=== PATIENT | female | born 1995 | race Caucasian/White ===

== ENCOUNTER 2024-08-10 02:44 | Emergency (ER) | payer BC, OTHER ==
[~2024-08-10] VITALS: Ht 162.6 cm; Wt 56.7 kg
[2024-08-10 02:45] VITALS: BP_SYST 109; PULSE 68; RESP 20; TEMP 97.2; O2SAT 99
[2024-08-10] MEDS: NACL 0.9% 1,000 ML IV ONE (03:22)
[2024-08-10 04:15] LABS: BASOPHILS % (AUTO) 0.4 % (0.0-2.0); EOSINOPHILS # (AUTO) 0.1 K/uL (0.0-0.4); EOSINOPHILS % (AUTO) 0.6 % (0.0-4.0); HEMATOCRIT 37.7 % (36-48); HEMOGLOBIN 12.4 g/dL (12.0-16.0); LYMPHOCYTES # (AUTO) 1.5 K/uL (1.0-5.5); LYMPHOCYTES % (AUTO) 15.6 % (20.5-51.5); MEAN CORPUSCULAR HEMOGLOBIN 28 pg (27-31); MEAN CORPUSCULAR HGB CONC 33 % (32-36); MEAN CORPUSCULAR VOLUME 84 fL (79.0-98.0); MONOCYTES # (AUTO) 0.5 K/uL (0.0-1.0); MONOCYTES % (AUTO) 5.2 % (1.7-9.3); NEUTROPHILS # (AUTO) 7.4 K/uL (1.8-7.7); NEUTROPHILS % (AUTO) 78.2 % (40.0-70.0); PLATELET COUNT (AUTO) 325 K/uL (130-430); RED CELL DISTRIBUTION WIDTH 14.9 % (9.0-15.0); WHITE BLOOD COUNT (AUTO) 9.4 K/uL (4.8-10.8)
[2024-08-10 04:42] LABS: ALBUMIN 4.3 g/dL (3.4-4.8); BILIRUBIN,DIRECT 0.1 mg/dL (0.0-0.3); CALCIUM 9.2 mg/dL (8.4-11.0); CREATININE 0.82 mg/dL (0.55-1.30); POTASSIUM 3.4 mmol/L (3.5-5.1); TOTAL BILIRUBIN 0.2 mg/dL (0.0-1.0); TOTAL PROTEIN, SERUM 8.2 g/dL (6.4-8.3)
[2024-08-10 04:44] LABS: SERUM HCG (QUALITATIVE) NEGATIVE (NEGATIVE)
[2024-08-10 05:11] LABS: BILIRUBIN,URINE NEGATIVE (NEGATIVE); BLOOD, URINE NEGATIVE (NEGATIVE); CLARITY/URINE CLEAR (CLEAR); COLOR,URINE YELLOW (YELLOW); GLUCOSE,URINE NEGATIVE (NEGATIVE); KETONES,URINE 1+ (NEGATIVE); LEUKOCYTE ESTERASE ,URINE NEGATIVE (NEGATIVE); NITRITE, URINE NEGATIVE (NEGATIVE); PH,URINE 7.5 (5.0-8.0); PROTEIN URINE NEGATIVE (NEGATIVE); UROBILINOGEN,URINE 0.2 (0.2-1.0)
[2024-08-10] MEDS: ONDANSETRON HCL 4 MG/2 ML VIAL IVP ONE (05:11)
[2024-08-10] MEDS: KETOROLAC TROMETHAMINE 15 MG VIAL IVP ONE (05:17)
[2024-08-10] MEDS: FAMOTIDINE PF 20 MG/2 ML VIAL IVP ONE (05:18)
[2024-08-10 06:15] VITALS: BP_SYST 100; PULSE 90; RESP 18; TEMP 97.2; O2SAT 98
== END 2024-08-10 06:15 | disposition home or self-care (01) ==
LOC: SED 02:44
DX: K29.20 Alcoholic gastritis without bleeding (principal); R10.12 Left upper quadrant pain; R11.2 Nausea with vomiting, unspecified
CPT/HCPCS: 99284; 96374; 96375; 96361; 80076; 80048; 81001; 84703; 83690; 85025; 36415; 81025; 81003; J3490; J1885; J2405; J7030